=== PATIENT | female | born 1985 | race Caucasian/White ===

== ENCOUNTER → 2020-06-16 | Outpatient (CLI) | payer OTHER ==
[2020-06-16 19:37] LABS: HEMATOCRIT 41.5 % (36.0-47.0); HEMOGLOBIN 11.5 g/dl (12.0-15.5); MEAN CORPUSCULAR HEMOGLOBIN 18.8 pg (27.0-33.0); MEAN CORPUSCULAR HGB CONC 27.7 g/dl (32.0-36.5); MEAN CORPUSCULAR VOLUME 67.9 fl (80.0-96.0); PLATELET COUNT, AUTOMATED 497 10^3/uL (150-450); RED BLOOD COUNT 6.11 10^6/uL (4.00-5.40)
[2020-06-16 19:54] LABS: HEMOGLOBIN A1c 5.3 %
[2020-06-16 20:12] LABS: HCG, SERUM QUANTITATIVE < 1.0 MIU/ML
[2020-06-16 20:14] LABS: ESTRADIOL 73.9 PG/ML; FOLLICLE STIMULATING HORMONE 6.1 mIU/mL; PROLACTIN 16.1 NG/ML
== END ==
LOC: M LAB 18:42
PROVIDERS: ATTEND Obstetrics & Gynecology
DX: N93.9 Abnormal uterine and vaginal bleeding, unspecified (principal)

== ENCOUNTER → 2020-07-02 | Outpatient (CLI) | payer OTHER | LOC: M RAD 07:39 | PROVIDERS: ATTEND Obstetrics & Gynecology | DX: D25.9 Leiomyoma of uterus, unspecified (principal); Z53.9 Procedure and treatment not carried out, unspecified reason ==